=== PATIENT | female | born 1965 | race Caucasian/White ===

== ENCOUNTER → 2020-05-01 | Outpatient (CLI) | payer OTHER ==
[~2020-05-01] MED LIST: AMLODIPINE BESY10 MG PO; ASPIR-LOW81 MG PO; DULERA 200 MCG8.8 GM INH; ECOTRIN81 MG PO; FENOFIBRATE160 MG PO; HABITROL 21 MG P1 EA TOP; IMDUR ER TAB 3030 MG PO; IPRAT-ALBUT 0.5-3 ML INH; LIPITOR40 MG PO; METOPROLOL SUC100 MG PO; NEURONTIN 300300 MG PO; NORCO 5-325 TA1 EACH PO; NORVASC5 MG PO; PAXIL10 MG PO; PLAQUENIL 200200 MG PO; PLAVIX 75 MG TA75 MG PO; PRAVACHOL20 MG PO; ROPINIROLE HCL0.5 MG PO; TOPROL XL100 MG PO; VENTOLIN HFA 66.7 GM INH; VENTOLIN/PROVE0.5 ML INH; VIT D2 PO; VITAMIN D250000 UNIT PO; WELLBUTRIN SR150 M1 PO; ZOFRAN4 MG PO
[2020-05-01 14:14] LABS: HEMOGLOBIN 15.2 gm/dl (12.3-15.3); RED BLOOD COUNT 5.05 M/UL (4.00-5.10); WHITE BLOOD COUNT 11.2 K/UL (4.5-11.0)
== END ==
LOC: LAB 13:24
PROVIDERS: Internal Medicine
DX: D89.89 Other specified disorders involving the immune mechanism, not elsewhere classified (principal); I73.9 Peripheral vascular disease, unspecified; Z92.29 Personal history of other drug therapy
CPT/HCPCS: 36415; 80069; 82570; 84156; 85027

== ENCOUNTER 2020-05-14 01:37 | Emergency (ER) | payer OTHER ==
[2020-05-14 02:33] LABS: HEMOGLOBIN 15.5 gm/dl (12.3-15.3); RED BLOOD COUNT 5.14 M/UL (4.00-5.10); WHITE BLOOD COUNT 22.2 K/UL (4.5-11.0)
[2020-05-14 03:02] LABS: BUN/CREATININE RATIO 10 (0-10)
== END 2020-05-14 09:20 | disposition other institution (70) ==
LOC: ER1 01:37
PROVIDERS: Emergency Medicine
DX: J18.9 Pneumonia, unspecified organism (principal); J96.91 Respiratory failure, unspecified with hypoxia; J96.92 Respiratory failure, unspecified with hypercapnia; I11.0 Hypertensive heart disease with heart failure; I50.9 Heart failure, unspecified; J44.9 Chronic obstructive pulmonary disease, unspecified; R41.82 Altered mental status, unspecified; F17.200 Nicotine dependence, unspecified, uncomplicated; Z87.09 Personal history of other diseases of the respiratory system; Z20.822 Contact with and (suspected) exposure to COVID-19
CPT/HCPCS: 0240U; 36600; 70450; 71045; 71250; 80053; 82140; 82550; 82553; 82803; 82962; 83605; 83690; 83735; 83874; 83880; 84484; 85025; 85610; 85730; 87040; 93005; 94660; 94760; 96365; 96366; 96367; 96375; 99285; J0330; J0360; J1940; J2250; J2704; J2930; J3370; J3475; J7070

== ENCOUNTER → 2020-07-27 | Outpatient (CLI) | payer OTHER ==
[2020-07-27 15:32] LABS: HEMOGLOBIN 12.8 gm/dl (12.3-15.3); RED BLOOD COUNT 4.47 M/UL (4.00-5.10)
== END ==
LOC: LAB 13:48
PROVIDERS: Nurse Practitioner
DX: Z12.11 Encounter for screening for malignant neoplasm of colon (principal); I10 Essential (primary) hypertension; I65.29 Occlusion and stenosis of unspecified carotid artery; I73.9 Peripheral vascular disease, unspecified; L29.9 Pruritus, unspecified; R45.86 Emotional lability
CPT/HCPCS: 36415; 80053; 82570; 83735; 83970; 84100; 84156; 84439; 84443; 85025

== ENCOUNTER → 2021-02-13 | Outpatient (CLI) | payer OTHER | LOC: EXRD 13:13 | DX: I73.9 Peripheral vascular disease, unspecified (principal) | CPT/HCPCS: 93925 ==